=== PATIENT | male | born 2000 | race Caucasian/White ===

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

== ENCOUNTER 2023-03-16 17:14 | Outpatient (REF) | payer OTHER, SELFPAY | END 2023-03-16 17:15 | disposition home or self-care (01) | LOC: LBN 17:14 | PROVIDERS: PCP Nurse Practitioner Pediatrics; Visit Provider Physician Assistant | DX: J02.9 Acute pharyngitis, unspecified (principal) | CPT/HCPCS: 87070 ==

== ENCOUNTER → 2023-08-04 01:19 | Outpatient (CLI) | payer OTHER, SELFPAY ==
--- NOTE | 2023-08-04 08:00 | DI.RAD_ITS ---
Exam(s) XR CHEST 2V PA LATERAL EXAM: XR CHEST 2V PA LATERAL CLINICAL HISTORY: [place] [employer] requirements for school,z78.9. TECHNIQUE: 2D digital imaging was performed. COMPARISON: No exams were available for comparison FINDINGS: 2 views: Heart size is normal. The mediastinum is not widened. Lungs are clear. No infiltrates nor pleural effusions. IMPRESSION: No acute pulmonary findings. DATA REPOSITORY: RADIATION DOSE DELIVERED:
== END ==
PROVIDERS: PCP Nurse Practitioner Pediatrics; Visit Provider Student in an Organized Health Care Education/Training Program
DX: Z78.9 Other specified health status (principal)
CPT/HCPCS: 71046

== ENCOUNTER 2023-08-04 02:50 | Outpatient (CLI) | payer OTHER, SELFPAY ==
[2023-08-04 13:18] LABS: HCT 45.6 % (40.0-50.0); MCH 27.5 pg (27.0-33.0); MCHC 32.9 % (32.0-36.0); MCV 84 fL (80-95); MPV 9.3 fL (8.0-11.0); Platelet Count 359 10^3/uL (130-400); RBC 5.45 10^6/uL (4.36-5.78); RDW 13.5 % (11.8-14.1); RDW-SD 41.4 fL; WBC 6.98 10^3/uL (4.4-10.8)
[2023-08-04 13:28] LABS: Bilirubin Small (Negative); Blood Moderate (Negative); Clarity Clear (Clear); Glucose Negative (Negative); Ketones Trace mg/dL (Negative); Leukocyte Esterase Negative (Negative); Nitrite Negative (Negative); Specific Gravity >= 1.030 (1.005-1.025); Urobilinogen 0.2 mg/dL (Up to 0.2); pH 5.5 (5-8)
[2023-08-04 13:31] LABS: ESR 5 mm/hr (0-15)
[2023-08-04 13:43] LABS: Epithelial Cells Rare HPF (Negative); WBC Negative HPF (0-5)
[2023-08-04 13:44] LABS: Bacteria Negative HPF (Negative); C & S Indicated? No; Casts Negative LPF (Negative); Crystals Negative HPF (Negative); Mucus Trace (Negative)
== END 2023-08-04 02:51 | disposition home or self-care (01) ==
LOC: LBO 02:50
PROVIDERS: PCP Nurse Practitioner Pediatrics; Visit Provider Student in an Organized Health Care Education/Training Program
DX: Z78.9 Other specified health status (principal)
CPT/HCPCS: 36415; 85027; 85652; 81003; 81015

== ENCOUNTER 2023-08-07 05:30 | Outpatient (CLI) | payer OTHER, SELFPAY ==
[2023-08-07 16:51] LABS: Bilirubin Negative (Negative); Blood Small (Negative); Clarity Clear (Clear); Glucose Negative (Negative); Ketones Negative (Negative); Leukocyte Esterase Negative (Negative); Nitrite Negative (Negative); Urobilinogen 0.2 mg/dL (Up to 0.2)
[2023-08-07 17:13] LABS: RBC 0-2 HPF (0-2); WBC Negative HPF (0-5)
[2023-08-07 17:14] LABS: Bacteria Negative HPF (Negative); C & S Indicated? No; Casts Negative LPF (Negative); Crystals Negative HPF (Negative); Epithelial Cells Rare HPF (Negative); Mucus Negative (Negative)
[2023-08-07 17:44] LABS: ALT 19 U/L (16-63); AST 23 U/L (15-37); Albumin 4.4 g/dL (3.4-5.0); Alkaline Phosphatase 65 U/L (46-116); Anion Gap 13.2 mmol/L (3-11); BUN 12 mg/dL (7-18); Bilirubin, Total 0.7 mg/dL (0.2-1.0); CO2 23.8 mmol/L (21.0-32.0); CREATININE 0.9 mg/dL (0.70-1.30); Calcium 9.1 mg/dL (8.5-10.1); Chloride 102 mmol/L (98-107); Estimated GFR 125.39 (mL/min/1.73m2); Glucose 92 mg/dL (74-106); Potassium 4.3 mmol/L (3.5-5.1); Sodium 139 mmol/L (136-145); Total Protein 7.8 g/dL (6.4-8.2)
[2023-08-08 21:43] LABS: Hepatitis C Ab w Rflx HCV PCR Negative (Negative)
[2023-08-08 21:54] LABS: HIV-1/2 Ag & Ab Screen Negative (Negative)
[2023-08-09 12:45] LABS: Chlamydia Result Negative (Negative); GC Result Negative (Negative)
== END 2023-08-07 05:31 | disposition home or self-care (01) ==
LOC: LBO 05:30
PROVIDERS: Pediatrics; PCP Nurse Practitioner Pediatrics; Visit Provider Student in an Organized Health Care Education/Training Program
DX: R31.9 Hematuria, unspecified (principal); Z11.3 Encounter for screening for infections with a predominantly sexual mode of transmission
CPT/HCPCS: 36415; 80053; 86803; 87389; 87491; 87591; 81003; 81015